=== PATIENT | female | born 1975 | race Two or more races ===

== ENCOUNTER 2022-03-24 12:24 | Inpatient (IN) | payer OTHER ==
[~2022-03-24] VITALS: Ht 154.9 cm; Wt 132.0 kg
[2022-03-24] MEDS ORDERED: COZAAR50 MG PO (13:05)
[2022-03-24] MEDS ORDERED: SYNTHROID75 MCG PO (13:06)
[2022-03-24] MEDS ORDERED: ZYRTEC10 M3 PO (13:06)
== END 2022-03-26 15:07 | disposition home or self-care (01) | DRG 392 ==
LOC: ER 12:24 → SEC-K 03-25 06:19 → SURH 03-25 11:39 → SURG 03-25 14:06
PROVIDERS: ADMIT Internal Medicine; ATTEND Internal Medicine
PROC: BW21ZZZ Computerized Tomography (CT Scan) of Abdomen and Pelvis (ICD-10-PCS; principal; 2022-03-24)
DX: R10.31 Right lower quadrant pain (principal); Z20.822 Contact with and (suspected) exposure to COVID-19